=== PATIENT | male | born 1970 | race Caucasian/White ===

== ENCOUNTER 2019-07-14 10:45 | Outpatient (CLI) | payer OTHER ==
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
== END 2019-07-14 10:46 | disposition home or self-care (01) ==
LOC: SCSRAD 10:45
PROVIDERS: ATTEND Family Medicine
DX: M54.5 Low back pain (principal)
CPT/HCPCS: 72100

== ENCOUNTER 2022-01-18 11:02 | Outpatient (CLI) | payer BC | END 2022-01-18 11:03 | disposition home or self-care (01) | LOC: LABBT 11:02 | PROVIDERS: ATTEND Orthopaedic Surgery | DX: S82.141D Displaced bicondylar fracture of right tibia, subsequent encounter for closed fracture with routine healing (principal); Z20.822 Contact with and (suspected) exposure to COVID-19 | CPT/HCPCS: U0003; U0005 ==

== ENCOUNTER 2022-01-19 06:56 | Observation (INO) | payer BC ==
[2022-01-18 12:26] VITALS: BMI 30.8
[2022-01-19] MEDS ORDERED: Midazolam HCl 2 mg/2 ml Vial ONE (08:46)
[2022-01-19] MEDS ORDERED: Fentanyl 100 MCG/2 ML VIAL ONE ×2 (08:46→11:40)
[2022-01-19] MEDS ORDERED: Dexamethasone 4 mg/ml Vial ONE (08:48)
[2022-01-19] MEDS ORDERED: fentaNYL Citrate/PF 100 MCG/2 ML SYRINGE ONE ×2 (09:45→09:46)
[2022-01-19] MEDS ORDERED: CEFAZOLIN 1 GM VIAL ONE (09:46)
[2022-01-19] MEDS ORDERED: Sodium Chloride 0.9% 100 ML ONE (09:46)
[2022-01-19] MEDS ORDERED: CEFAZOLIN 2 GM VIAL ONE (09:46)
[2022-01-19] MEDS ORDERED: Ondansetron PF 4 MG/2 ML Vial ONE (10:00)
[2022-01-19] MEDS ORDERED: Lidocaine 1% PF 5 ML VIAL ONE (10:00)
[2022-01-19] MEDS ORDERED: PROPOFOL 200 MG/20 ML VIAL ONE (10:00)
[2022-01-19] MEDS ORDERED: Bupivacaine HCl 0.5%/Epinephrine 1:200,000/PF 30 ml Vial ONE (10:00)
[2022-01-19] MEDS ORDERED: Dexamethasone 20 MG/5 ML VIAL ONE ×2 (10:00)
[2022-01-19] MEDS ORDERED: Ketorolac Tromethamine 30 MG/ML VIAL ONE (10:00)
[2022-01-19] MEDS ORDERED: Ondansetron PF 4 MG/2 ML Vial SLOW IVP PRN (11:57)
[2022-01-19] MEDS ORDERED: Communication Order-Pharmacy FS SCH (12:00)
[2022-01-19] MEDS ORDERED: HYDROmorphone 2 MG/ML VIAL ONE (12:01)
[2022-01-19] MEDS: Morphine 2 MG/ML VIAL SLOW IVP PRN (14:18)
[2022-01-19] MEDS: CEFAZOLIN 2 GM in Sodium Chloride 0.9% 100 ML IVPB SCH (18:26)
[2022-01-19] MEDS: HYDROcodone/Acetaminophen 10/325 mg Tablet PO PRN (20:42)
[2022-01-19] MEDS: Aspirin 81 mg Enteric Coated Tablet PO SCH (20:42)
[2022-01-20] MEDS: HYDROcodone/Acetaminophen 10/325 mg Tablet PO PRN ×5 (00:47→20:02)
[2022-01-20] MEDS: CEFAZOLIN 2 GM in Sodium Chloride 0.9% 100 ML IVPB SCH ×3 (02:19→17:56)
[2022-01-20] MEDS: Morphine 2 MG/ML VIAL SLOW IVP PRN (02:23)
[2022-01-20 05:58] LABS: #Lymphocytes 1.5 thou/uL (1.20-3.40); #Monocytes 1.2 thou/uL (0.11-0.59); #Neutrophils 8.8 thou/uL (1.40-6.50); %Basophils 0.3 % (0.0-1.0); %Eosinophils 0.2 % (0.0-10.0); %Monocytes 10.2 % (0.0-10.0); %Neutrophils 76.3 % (42.0-75.0); Mean Corpuscular HGB CONC 33.9 g/dL (32.0-36.0); Mean Corpuscular Hemoglobin 31.1 pg (27.0-31.0); Mean Corpuscular Volume 91.9 fL (78.0-98.0); Mean Platelet Volume 6.9 fL (7.4-10.4); Platelet Count 250 thou/uL (130-400); RBC Distribution Width 11.5 % (11.5-14.5); Red Blood Cell (RBC) Count 4.49 mill/uL (4.70-6.10); White Blood Cell (WBC) Count 11.6 thou/uL (4.8-10.8)
[2022-01-20] MEDS: Aspirin 81 mg Enteric Coated Tablet PO SCH ×2 (09:07→20:02)
[2022-01-21] MEDS: HYDROcodone/Acetaminophen 10/325 mg Tablet PO PRN ×4 (00:10→13:44)
[2022-01-21] MEDS: CEFAZOLIN 2 GM in Sodium Chloride 0.9% 100 ML IVPB SCH ×2 (02:17→10:41)
[2022-01-21] MEDS: Aspirin 81 mg Enteric Coated Tablet PO SCH (08:35)
[2022-01-21 12:10] VITALS: BP 148/79; TEMP 97.9
== END 2022-01-21 14:34 | disposition home or self-care (01) ==
LOC: SDC 06:56 → SJJU 11:57
PROVIDERS: ADMIT Orthopaedic Surgery; ATTEND Orthopaedic Surgery
PROC: 0QSG04Z Reposition Right Tibia with Internal Fixation Device, Open Approach (ICD-10-PCS; principal; 2022-01-19)
DX: S82.121A Displaced fracture of lateral condyle of right tibia, initial encounter for closed fracture (principal); S82.134A Nondisplaced fracture of medial condyle of right tibia, initial encounter for closed fracture; S82.001A Unspecified fracture of right patella, initial encounter for closed fracture; E78.5 Hyperlipidemia, unspecified; J45.909 Unspecified asthma, uncomplicated; G47.30 Sleep apnea, unspecified; M19.90 Unspecified osteoarthritis, unspecified site; F17.220 Nicotine dependence, chewing tobacco, uncomplicated; Z86.16 Personal history of COVID-19; Z79.899 Other long term (current) drug therapy; W55.22XA Struck by cow, initial encounter
CPT/HCPCS: 36415; 76000; 85025; 96374; 96375; 96376; C1713; G0378; J0690; J1100; J1170; J1885; J2250; J2270; J2405; J2704; J3010; J3490